=== PATIENT | female | born 1990 | race American Indian/Alaskan Native ===

== ENCOUNTER 2021-06-11 08:51 | Inpatient (IN) | payer MEDICAID ==
[2021-06-11] MEDS ORDERED: LACTATED RINGERS 1,000 ML ONE (09:05)
[2021-06-11] MEDS ORDERED: OXYTOCIN DRIP 30,000 MILLIUNITS/500 ML BAG IV ONE (09:06)
[2021-06-11] MEDS ORDERED: AMPICILLIN/NS 2 GM/100 ML 0 GM/0 ML BAG IV ONE (09:06)
[2021-06-11] MEDS ORDERED: fentaNYL 100 MCG/2 ML INJ ONE (09:10)
[2021-06-11] MEDS ORDERED: MINERAL OIL 30 ML ORAL LIQD ONE (09:25)
[2021-06-11] MEDS ORDERED: LIDOCAINE (2%) 20 MG/1 ML VIAL 20 ML MDV INFILTRATI ONE (09:25)
[2021-06-11] MEDS ORDERED: LIDOCAINE (2%) 20 MG/1 ML VIAL 20 ML MDV INFILTRATI NR (09:52)
[2021-06-11] MEDS ORDERED: miSOPROStol 200 MCG TAB PR PRN (09:52)
[2021-06-11] MEDS ORDERED: METHYLERGONOVINE MALEATE 0.2 MG/ML VIAL IM PRN (09:52)
[2021-06-11] MEDS ORDERED: OXYTOCIN 10 UNIT/1 ML INJ IM PRN (09:52)
[2021-06-11] MEDS ORDERED: TERBUTALINE 1 MG/1 ML INJ SUB-Q PRN (09:52)
[2021-06-11] MEDS ORDERED: LOPERAMIDE 2 MG CAP PO PRN (09:52)
[2021-06-11] MEDS ORDERED: CARBOPROST TROMETHAMINE 250 MCG/1 ML INJ IM PRN (10:00)
[2021-06-11] MEDS ORDERED: BUTORPHANOL 2 MG/1 ML INJ IV PRN (10:00)
[2021-06-11] MEDS ORDERED: fentaNYL 100 MCG/2 ML INJ IV PRN (10:00)
[2021-06-11] MEDS ORDERED: OXYTOCIN DRIP 30 UNITS/500 ML BAG IV SCH (10:00)
[2021-06-11] MEDS ORDERED: LACTATED RINGERS 1,000 ML IV SCH (10:00)
[2021-06-11] MEDS ORDERED: ePHEDrine SULFATE 50 MG/1 ML INJ IV PRN (10:00)
--- NOTE | 2021-06-11 10:01 | History and Physical Report ---
History of Present Illness Date of examination: 06/11/21 Date of admission: 06/11/2021 Chief complaint: My water broke History of present illness: Patient is a 30-year-old 4 para 2 who presents in active labor with spontaneous rupture of membranes with EDC June 11, 2021. Patient had uncomplicated course. She initiated care in the first trimester. She is GBS negative. Her history is significant for a short interval , patient delivered a baby in 2019. Past History Past Medical History: no pertinent history Past Surgical History: no surgical history Social history: single - Obstetrical History Expected Date of Delivery: 06/11/21 Actual Gestation: 40 Week(s) 0 Day(s) : 4 Para: 2 Number of Living Children: 2 Medications and Allergies Allergies Allergy/AdvReac Type Severity Reaction Status Date / Time No Known Allergies Allergy Unverified 06/11/21 08:40 Active Meds: Active Medications Acetaminophen (Acetaminophen 325 Mg Tab) 650 mg PO Q4H PRN PRN Reason: Pain, Mild (1-3) Butorphanol Tartrate (Butorphanol 2 Mg/1 Ml Inj) 1 mg IV Q2H PRN PRN Reason: Pain, Moderate(4-6) LABOR PAIN Carboprost Tromethamine (Carboprost Tromethamine 250 Mcg/1 Ml Inj) 250 mcg IM ONCE PRN PRN Reason: Uterine Bleeding Ephedrine Sulfate (Ephedrine Sulfate 50 Mg/1 Ml Inj) 10 mg IV Q2M PRN PRN Reason: Hypotension Fentanyl (Fentanyl 100 Mcg/2 Ml Inj) 100 mcg IV Q2H PRN PRN Reason: Pain,Severe (7-10) LABOR PAIN Oxytocin/Sodium Chloride (Pitocin/Ns 30 Unit/500ml) 30 units in 500 mls @ 2 mls/hr IV TITR ANNE MARIE; Protocol Lactated Ringer's (Lactated Ringers) 1,000 mls @ 125 mls/hr IV DIRECT ANNE MARIE Lidocaine (Lidocaine (2%) 20 Mg/1 Ml Vial 20 Ml Mdv) 20 ml INFILTRATI ONCE ONE Stop: 06/11/21 09:53 Loperamide HCl (Loperamide 2 Mg Cap) 2 mg PO ONCE PRN PRN Reason: give with Hemabate Methylergonovine Maleate (Methylergonovine Maleate 0.2 Mg/Ml Vial) 0.2 mg IM ONCE PRN PRN Reason: Uterine Bleeding Mineral Oil (Mineral Oil 30 Ml Oral Liqd) 30 ml PO QHS PRN PRN Reason: Constipation Misoprostol (Misoprostol 200 Mcg Tab) 800 mcg RI ONCE PRN PRN Reason: Uterine Bleeding Ondansetron HCl (Ondansetron 4 Mg/2 Ml Inj) 4 mg IV Q8H PRN PRN Reason: Nausea And Vomiting Oxytocin (Oxytocin 10 Unit/1 Ml Inj) 10 unit IM ONCE PRN PRN Reason: Uterine Bleeding Terbutaline Sulfate (Terbutaline 1 Mg/1 Ml Inj) 0.25 mg SUB-Q ONCE PRN PRN Reason: Hyperstimulation/Hypertonicity Review of Systems All systems: negative Genitourinary: leakage of fluid, contractions - Vital Signs Vital signs: Vital Signs Pulse Ox 87 06/11/21 09:05 Temp Pulse Resp BP Pulse Ox 96 H 117/66 100 06/11/21 09:56 06/11/21 09:56 06/11/21 09:56 - Physical Exam Breasts: Positive: deferred Cardiovascular: Regular rate, Normal S1, Normal S2 Lungs: Positive: Clear to auscultation, Normal air movement Abdomen: Positive: normal appearance, soft, normal bowel sounds. Negative: distention, tenderness Genitourinary (Female): Positive: normal external genitalia, normal perenium Vulva: both: normal Vagina: Positive: normal moisture. Negative: discharge Cervix: Negative: lesion, discharge Uterus: Positive: normal size, normal contour Adnexa: both: normal Anus/Rectum: Positive: normal perianal skin, heme negative. Negative: rectal mass, hemorrhoids Extremities: Deep Tendon Reflex Grade: Normal +2 - Obstetrical FHR: auscultation normal Cervical Dilatation: 8 Cervical Effacement Percentage: 90 station: 0 Uterine Contraction Pattern: Regular Results All other labs normal. Assessment and Plan IUP at 40 weeks today in active labor. Will admit for anticipated . Patient is GBS negative, no need to treat for infection.
--- NOTE | 2021-06-11 10:03 | Procedure Note ---
OB Delivery Note - Delivery Date of Delivery: 06/11/21 Surgeon: HARRY DAVIS Estimated blood loss: 100cc - Vaginal Delivery presentation: vertex Delivery position: OA Intrapartum events: precipitous labor- <3hr Delivery induction: none Delivery monitor: external FHT, external uterine Route of delivery: Delivery placenta: spontaneous Delivery cord: 3 umbilical vessels Episiotomy: none Delivery laceration: 1st degree Delivery repair: vicryl Anesthesia: local Delivery comments: Viable female delivered over intact perineum at 933a.m. . had spontaneous cry and was placed on maternal abdomen. Cord was clamped and cut when finished pulsating. Weight 7 pounds 13 ounces. Apgars 9/9. Placenta was delivered spontaneously and intact with three-vessel cord. Patient had a first-degree laceration that was repaired with 2-0 Vicryl. Excellent hemostasis. Patient tolerated procedure well. - Infant A at 1 minute: 9 at 5 minutes: 9 Gender: Female (7 pounds 13 ounces, 3550 gram)
[2021-06-11] MEDS ORDERED: ONDANSETRON 4 MG/2 ML INJ IV PRN ×2 (10:30→12:28)
[2021-06-11 10:37] LABS: Hematocrit 31.8 % (30.3-42.9); Hemoglobin 10.6 gm/dl (10.1-14.3); Mean Corpuscular HGB Conc 33 % (30-34); Mean Corpuscular Volume 88 fl (79-97); Platelet Count 152 K/mm3 (140-440); Red Blood Count 3.63 M/mm3 (3.65-5.03); Red Cell Distribution Width 13.7 % (13.2-15.2)
[2021-06-11] MEDS ORDERED: ACETAMINOPHEN 325 MG TAB PO PRN (11:00)
[2021-06-11] MEDS ORDERED: LANOLIN/ZINC/DIMETHICONE (LANSINOH) 7 GM TP PRN (12:28)
[2021-06-11] MEDS ORDERED: WITCH HAZEL/ GLYCERIN PAD TP PRN (12:28)
[2021-06-11] MEDS ORDERED: MAGNESIUM HYDROXIDE (MOM) ORAL LIQD UDC PO PRN (12:28)
[2021-06-11] MEDS ORDERED: PROMETHAZINE 25 MG TAB PO PRN (12:28)
[2021-06-11] MEDS ORDERED: diphenhydrAMINE 25 MG CAP PO PRN (12:28)
[2021-06-11] MEDS ORDERED: HYDROcodone/ACETAMINOPHEN 5-325 MG TAB PO PRN (12:28)
[2021-06-11] MEDS ORDERED: PRENATAL VIT27-FE FUMARATE-FOLIC ACID VIT TAB PO SCH (12:28)
[2021-06-11] MEDS ORDERED: PROMETHAZINE 25 MG RECT SUPP PR PRN (12:28)
[2021-06-11] MEDS: IBUPROFEN 600 MG TAB PO SCH (18:04)
[2021-06-11] MEDS: DOCUSATE SODIUM 100 MG CAP PO SCH ×2 (21:57)
[2021-06-11] MEDS ORDERED: MINERAL OIL 30 ML ORAL LIQD PO PRN (22:00)
[2021-06-11 23:37] LABS: Hematocrit 29.2 % (30.3-42.9); Hemoglobin 9.8 gm/dl (10.1-14.3)
[2021-06-12] MEDS: IBUPROFEN 600 MG TAB PO SCH ×4 (05:57→11:50)
[2021-06-12] MEDS: DOCUSATE SODIUM 100 MG CAP PO SCH (09:37)
--- NOTE | 2021-06-12 11:12 | Progress Note ---
Assessment and Plan PPD 1 s/p . Doing well. Plan for discharge on today. Subjective - Subjective Date of service: 06/12/21 Interval history: Patient is a 30-year-old 4 para 2 who presents in active labor with spontaneous rupture of membranes with EDC June 11, 2021. Patient had uncomplicated course. She initiated care in the first trimester. She is GBS negative. Her history is significant for a short interval , patient delivered a baby in 2019. Patient reports: appetite normal, voiding normally, pain well controlled, ambulating normally : doing well Objective - Vital Signs Latest vital signs: Vital Signs Temp Pulse Resp BP BP Pulse Ox Pulse Ox 06/12/21 07:40 98 06/12/21 07:05 98.2 F 79 20 98/63 99 06/12/21 07:00 18 06/12/21 06:00 18 06/12/21 05:58 18 06/12/21 04:00 98.8 F 69 16 112/73 06/11/21 23:41 98.0 F 69 18 113/72 95 06/11/21 20:04 98.0 F 87 18 115/69 100 06/11/21 20:00 98 06/11/21 19:04 18 06/11/21 19:03 18 06/11/21 17:57 98 06/11/21 16:00 98 06/11/21 15:55 98 F 90 20 118/74 06/11/21 14:25 98 06/11/21 12:10 97.5 F L 92 H 20 109/70 06/11/21 12:05 98 06/11/21 11:12 90 100 Intake and Output 06/11/21 06/12/21 06/12/21 22:59 06:59 14:59 Intake Total 740 300 Output Total 1500 Balance -760 300 Intake: Oral 440 Intake, Free Water 300 300 Output: Urine 1500 Void 1500 Other: Total, Intake Amount 120 Total, Output Amount 600 # Voids Void 1 1 1 - Exam Breasts: Present: deferred Cardiovascular: Present: Regular rate, Normal S1, Normal S2 Lungs: Present: Clear to auscultation, Normal air movement Abdomen: Present: normal appearance, soft Uterus: Present: normal, firm Extremities: Present: normal Deep Tendon Reflex Grade: Normal +2 - Labs Labs: Abnormal lab results 06/11/21 Range/Units 23:23 Hgb 9.8 L (10.1-14.3) gm/dl Hct 29.2 L (30.3-42.9) %
--- NOTE | 2021-06-12 11:13 | Discharge Summary ---
Providers - Providers Date of Admission: 06/11/21 08:52 Date of discharge: 06/12/21 Attending physician: HARRY DAVIS Primary care physician: HARRY DAVIS Hospitalization Reason for admission: active labor Delivery: Episiotomy: none Laceration: 1st degree Other procedures: none Discharge diagnosis: IUP at term delivered baby: female Condition at discharge: Stable Disposition: 01 HOME / SELF CARE / HOMELESS Plan - Discharge Medications Prescriptions: Ibuprofen [Motrin] 800 mg PO Q8HR PRN #40 tablet PRN Reason: Pain, Mild (1-3) - Provider Discharge Summary Activity: routine, no sex for 6 weeks, no heavy lifting 4 weeks, no strenuous exercise Diet: routine Instructions: routine Additional instructions: [] Smoking cessation referral if applicable(refer to patient education folder for contact #) [] Refer to [facility] Book[facility] Call your doctor immediately for: * Fever > 100.5 * Heavy vaginal bleeding ( >1 pad per hour) * Severe persistent headache * Shortness of breath * Reddened, hot, painful area to leg or breast * Drainage or odor from incision. * Keep incision clean and dry at all times and follow doctor's instructions regarding bathing/showering - Follow up plan Follow up: HARRY DAVIS MD [Primary Care Provider] - 14 Days Forms: [facility] Discharge Summary
[2021-06-12 13:13] VITALS: BP 92/62
== END 2021-06-12 13:15 | disposition home or self-care (01) | DRG 775 ==
LOC: TRG 08:51 → APU 08:51 → LD 08:52 → TRG 09:59 → OB 12:00
PROVIDERS: ADMIT Obstetrics & Gynecology; ATTEND Obstetrics & Gynecology
PROC: 10E0XZZ Delivery of Products of Conception, External Approach (ICD-10-PCS; principal; 2021-06-11)
PROC: 0HQ9XZZ Repair Perineum Skin, External Approach (ICD-10-PCS; 2021-06-11)
DX: O62.3 Precipitate labor (principal); Z3A.40 40 weeks gestation of pregnancy; Z37.0 Single live birth; Z20.822 Contact with and (suspected) exposure to COVID-19; O70.0 First degree perineal laceration during delivery
CPT/HCPCS: 36415; 85014; 85018; 85027; 86850; 86900; 86901; G0378; J3010; U0003

== ENCOUNTER 2021-08-16 06:47 | Day surgery (SDC) | payer MEDICAID ==
[2021-08-16] MEDS ORDERED: HYDROmorphone 1 MG/1 ML INJ IV PRN ×2 (07:39)
[2021-08-16] MEDS ORDERED: ONDANSETRON 4 MG/2 ML INJ IV PRN (07:39)
--- NOTE | 2021-08-16 07:40 | Anesthesia Day of Surgery ---
Anesthesia Day of Surgery - Day of Surgery Patient Examined: Yes Patient H&P Reviewed: Yes Patient is NPO: Yes
--- NOTE | 2021-08-16 07:41 | Anesthesia Consultation ---
Anesthesia Consult and Med Hx Date of service: 08/16/21 - Airway Anesthetic Teeth Evaluation: Dentures ROM Head & Neck: Adequate Mental/Hyoid Distance: Adequate Mallampati Class: Class II Intubation Access Assessment: Good - Pre-Operative Health Status ASA Pre-Surgery Classification: ASA1 Proposed Anesthetic Plan: General - Pulmonary Hx Smoking: No Hx Asthma: No COPD: No Hx Pneumonia: No - Cardiovascular System Hx Hypertension: No - Central Nervous System Hx Seizures: No Hx Psychiatric Problems: No - Endocrine Hx Renal Disease: No Hx End Stage Renal Disease: No Hx Hypothyroidism: No Hx Hyperthyroidism: No - Hematic Hx Anemia: No Hx Sickle Cell Disease: No - Other Systems Hx Alcohol Use: No Hx Cancer: No Hx Obesity: No - Additional Comments Anesthesia Medical History Comments: Not
[2021-08-16] MEDS ORDERED: LACTATED RINGERS 1,000 ML IV SCH (07:45)
[2021-08-16] MEDS ORDERED: CELECOXIB 200 MG CAP PO NR (08:00)
[2021-08-16] MEDS ORDERED: MIDAZOLAM 2 MG/2 ML INJ IV NR (08:00)
[2021-08-16] MEDS ORDERED: ceFAZolin/Water 2 GM/20 ML 2 GM/20 ML SYRINGE IV NR (09:00)
[2021-08-16] MEDS ORDERED: ACETAMINOPHEN 500 MG TAB PO ONE (10:00)
[2021-08-16] MEDS ORDERED: MAGNESIUM OXIDE 400 MG TAB PO ONE (10:00)
[2021-08-16] MEDS ORDERED: BUPIVACAINE/PF (0.25%) 2.5 MG/ML 30 ML VIAL INFILTRATI ONE ×2 (10:08→10:54)
[2021-08-16] MEDS ORDERED: ROCURONIUM 50 MG/5 ML INJ IV ONE (10:11)
[2021-08-16] MEDS ORDERED: LIDOCAINE MPF (2%) 20 MG/1 ML VIAL 5 ML ONE (10:11)
[2021-08-16] MEDS ORDERED: propofoL 200 MG/20 ML VIAL IV ONE (10:11)
[2021-08-16] MEDS ORDERED: fentaNYL 100 MCG/2 ML INJ ONE (10:11)
--- NOTE | 2021-08-16 10:15 | Short Stay Summary ---
Short Stay Documentation Date of service: 08/16/21 Narrative H&P: Patient is a 31 year old who presents for elective sterilization. Pt is recently status post in June. - History Principal diagnosis: Undesired fertility H&P: obtained from office Past Medical History: No medical history Past Surgical History: No surgical history Social history: single - Allergies and Medications Current Medications: Allergies No Known Allergies Allergy (Unverified 08/14/21 15:14) Home Medications Medication Instructions Recorded Confirmed Last Taken Type No Known Home Medications [No 08/14/21 08/14/21 Unknown History Reported Home Medications] Active Medications Celecoxib (Celecoxib 200 Mg Cap) 400 mg PO PREOP NR Stop: 08/16/21 23:59 Hydromorphone HCl (Hydromorphone 1 Mg/1 Ml Inj) 0.25 mg IV Q10MIN PRN PRN Reason: Pain, Moderate (4-6) Hydromorphone HCl (Hydromorphone 1 Mg/1 Ml Inj) 0.5 mg IV Q10MIN PRN PRN Reason: Pain , Severe (7-10) Lactated Ringer's (Lactated Ringers) 1,000 mls @ 125 mls/hr IV DIRECT ANNE MARIE Cefazolin Sodium (Ancef/Sterile Water 2 Gm/20 Ml) 2 gm in 20 mls @ 80 mls/hr IV PREOP NR; Protocol Stop: 08/16/21 23:59 Midazolam HCl (Midazolam 2 Mg/2 Ml Inj) 2 mg IV PREOP NR Stop: 08/16/21 23:59 Ondansetron HCl (Ondansetron 4 Mg/2 Ml Inj) 4 mg IV ONCE PRN PRN Reason: Nausea And Vomiting - Physical exam General appearance: no acute distress Integumentary: no rash, no growths, no abnormal pigmentation HEENT: Atraumatic Lungs: Clear to auscultation, Normal air movement Breasts: deferred Heart: Regular rate, Normal S1, Normal S2 Gastrointestinal: normal, normoactive bowel sounds Female Genitourinary: normal Rectal Exam: deferred Extremities: no ischemia, No edema - Brief post op/procedure progress note Date of procedure: 08/16/21 Pre-op diagnosis: undesired fertility Post-op diagnosis: same Procedure: Bilateral laparoscopic salpingectomy Anesthesia: GETA Findings: normal appearing uterus tubes and ovaries Surgeon: HARRY DAVIS Estimated blood loss: minimal Pathology: list (right and left fallopian tubes) Specimen disposition: to lab Condition: stable - Hospital course Hospital course: unremarkable - Disposition Condition at discharge: Stable Disposition: 01 HOME / SELF CARE / HOMELESS Short Stay Discharge Plan Activity: advance as tolerated Weight Bearing Status: Weight Bear as Tolerated Diet: regular Wound: open to air Prescriptions: Ibuprofen [Motrin] 800 mg PO Q8HR PRN #40 tablet PRN Reason: Pain, Moderate (4-6) HYDROcodone/APAP 5-325 [[place] 5/325] 1 each PO Q6HR PRN #20 tablet PRN Reason: Pain
[2021-08-16] MEDS ORDERED: MIDAZOLAM 2 MG/2 ML INJ ONE (10:20)
[2021-08-16] MEDS ORDERED: SODIUM CHLORIDE 0.9% IRR 1,500 ML BOTTLE IR ONE (10:55)
[2021-08-16] MEDS ORDERED: dexAMETHasone 20 MG/5 ML VIAL ONE (11:08)
[2021-08-16] MEDS ORDERED: KETOROLAC 30 MG/1 ML INJ ONE (11:08)
[2021-08-16] MEDS ORDERED: NEOSTIGMINE 10MG/10 ML INJ MDV ONE (11:08)
[2021-08-16] MEDS ORDERED: GLYCOPYRROLATE 0.4 MG/2 ML INJ ONE (11:08)
[2021-08-16] MEDS ORDERED: ONDANSETRON 4 MG/2 ML INJ ONE (11:08)
--- NOTE | 2021-08-16 11:22 | Operative Report ---
Operative Report Operative Report: Preoperative diagnosis: Undesired fertility Postoperative diagnosis: Same Procedure: Bilateral laparoscopic salpingectomy Surgeon: Janet Hu Anesthesia: General EBL: Minimal IV fluids: 1000 mL Urine output: 150 mL Findings: Normal uterus tubes and ovaries Specimens: Portion of right and left fallopian tube Complications: None The patient was properly identified as herself. She was then taken to the OR with IV running and in place. She was given general anesthesia without difficulty. She was placed in a dorsal lithotomy position. She was then prepped and draped in normal sterile fashion. Attention was turned to the patient's vagina. Her bladder was drained of clear urine with a red rubber c atheter. The speculum was then placed the patient's vagina. The cervix was visualized and grasped with tenaculum. The acorn cannula was then inserted. The surgeon's gloves were changed and attention turned to the patient's abdomen. A small incision was made in the patient's umbilicus incision a 5 mm trocar was placed. The laparoscope confirmed intra-abdominal placement. The abdomen was insufflated with CO2 gas to approximately 25 mmHg. Both fallopian tubes were identified. With direct visualization a second trocar was placed through an incision in the left lower quadrant. Both tubes were found and followed out to the fimbriated ends. Each tube was cauterized at the portion nearest the cornua, then cauterized across the broad ligament until the tube was completely detached. There was excellent hemostasis at the end of this portion of the procedure. Each tube was handed off for pathology. At this point the abdomen was deflated. All instruments were then removed from the abdomen. The incisions were then closed with 4-0 Monocryl. The incisions were also injected with quarter percent Marcaine. The patient tolerated the procedure well she was then awakened and taken recovery in stable condition. Sponge needle and instrument counts were correct 2.
[2021-08-16 15:57] VITALS: BP 106/59
--- NOTE | 2021-08-16 16:23 | Post Anesthesia Evaluation ---
- Post Anesthesia Evaluation Patient Participated: Yes Airway Patent: Yes Stable Respiratory Function: Yes Nausea/Vomiting: No Temp > 96.8F: Yes Pain Manageable: Yes Adequeate Hydration: Yes Anesthesia Complications: No Block Receding Appropriately: Not Applicable Patient on Ventilator: No
== END 2021-08-16 06:48 | disposition home or self-care (01) ==
LOC: OR 06:47
PROVIDERS: ATTEND Obstetrics & Gynecology
DX: Z30.2 Encounter for sterilization (principal); Z64.0 Problems related to unwanted pregnancy; Z79.899 Other long term (current) drug therapy; Z98.890 Other specified postprocedural states
CPT/HCPCS: 58661; 81025; 88302; J0690; J1100; J1815; J1885; J2250; J2405; J2704; J2710; J3010; J3490; J7120